=== PATIENT | male | born 1985 | race African-American/Black ===

== ENCOUNTER 2020-07-09 22:07 | Emergency (ER) | payer OTHER, MEDICAID ==
[2020-07-09] MEDS ORDERED: Tetracaine HCl 0.5% Ophth Soln 2 ML Bottle ONE (22:16)
[2020-07-09] MEDS ORDERED: Fluorescein Opthalmic Strip ONE (22:17)
[2020-07-09] MEDS ORDERED: Sodium Chloride 0.9% 250 ML 250 ML ONE (22:25)
[2020-07-09] MEDS ORDERED: Erythromycin Base 0.5% Oint 1 GM TUBE ONE (22:37)
[2020-07-09] MEDS ORDERED: Ibuprofen 800 MG TAB ONE (22:37)
== END 2020-07-09 22:45 | disposition home or self-care (01) ==
LOC: NAV ERS 22:07
DX: S05.01XA Injury of conjunctiva and corneal abrasion without foreign body, right eye, initial encounter (principal); F17.210 Nicotine dependence, cigarettes, uncomplicated; X58.XXXA Exposure to other specified factors, initial encounter
CPT/HCPCS: 99283; J7050